=== PATIENT | male | born 1990 | race Caucasian/White ===

== ENCOUNTER 2017-10-10 14:54 | Emergency (ER) | payer OTHER ==
[2017-10-10 15:10] VITALS: BP 131/79
--- NOTE | 2017-10-10 16:01 | ED Physician Documentation ---
PD HPI URI - Stated complaint Stated Complaint: FLU SYMPTOMS - Chief complaint Chief Complaint: Abd Pain - History obtained from History obtained from: Patient - History of Present Illness Timing - onset: Last night Timing details: Abrupt onset, Still present Associated symptoms: Fever, Chills, NVD. 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 No: Sick contact, Immunocompromised, Unimmunized Similar symptoms before: Has not had sx before Recently seen: Not recently seen Review of Systems Constitutional: reports: Fever, Chills, Myalgias Nose: denies: Rhinorrhea / runny nose, Congestion Throat: denies: Sore throat Respiratory: denies: Cough GI: reports: Nausea, Vomiting, Diarrhea. denies: Abdominal Pain : denies: Dysuria, Frequency Skin: denies: Rash, Lesions Neurologic: reports: Generalized weakness. denies: Near syncope Endocrine: denies: Weight loss Immunocompromised: denies: Immunocompromised PD PAST MEDICAL HISTORY - Past Medical History Cardiovascular: None Endocrine/Autoimmune: None GI: None - Past Surgical History Past Surgical History: Yes General: Other - Present Medications Home Medications: Ambulatory Orders Medication Instructions Recorded Confirmed Diphenoxylate HCl/Atropine 1 each PO Q6H PRN #12 tablet 10/10/17 [Diphenoxylate-Atrop 2.5-0.025] Naproxen 375 mg PO BID #15 tablet 10/10/17 Ondansetron Odt [Zofran] 4 mg TL Q6H PRN #15 tablet 10/10/17 - Allergies Allergies/Adverse Reactions: Allergies Allergy/AdvReac Type Severity Reaction Status Date / Time No Known Drug Allergies Allergy Verified 07/04/16 18:56 - Social History Does the pt smoke?: No Smoking Status: Never smoker Does the pt drink ETOH?: Yes Does the pt have substance abuse?: No - Immunizations Immunizations are current?: Yes PD ED PE NORMAL - Vitals Vital signs reviewed: Yes - General General: Alert and oriented X 3, Well developed/nourished - HEENT HEENT: Ears normal, Pharynx benign. No: Moist mucous membranes - Neck Neck: Supple, no meningeal sign, No adenopathy - Cardiac Cardiac: RRR, No murmur - Respiratory Respiratory: Clear bilaterally - Abdomen Abdomen: Normal bowel sounds, Soft, Non tender, Non distended - Male Male : Deferred - Rectal Rectal: Deferred - Back Back: No CVA TTP - Derm Derm: Warm and dry. No: Normal color (somewhat pale) - Extremities Extremities: No deformity, No tenderness to palpate, Normal ROM s pain, No edema , No calf tenderness / cord - Neuro Neuro: Alert and oriented X 3, No motor deficit, Normal speech Results - Vitals Vitals: Oxygen O2 Source Room air - Labs Labs: Laboratory Tests 10/10/17 15:15 Influenza A (Rapid) Negative Influenza B (Rapid) Negative Influenza Types A,B Ag - PD MEDICAL DECISION MAKING - ED course Complexity details: re-evaluated patient (feeling much better with some IV fluids and meds. Taking PO fluids here now. tachycardia improved but feeling much better. ), considered differential, d/w patient Departure - Departure Disposition: 01 Home, Self Care Clinical Impression: Nausea vomiting and diarrhea Condition: Stable Record reviewed to determine appropriate education?: Yes Instructions: ED Food Poison Or Gastroenteritis Follow-Up: [facility] [Provider Group] Prescriptions: Diphenoxylate HCl/Atropine [Diphenoxylate-Atrop 2.5-0.025] 1 each PO Q6H PRN # 12 tablet PRN Reason: Diarrhea Naproxen 375 mg PO BID #15 tablet Ondansetron Odt [Zofran] 4 mg TL Q6H PRN #15 tablet PRN Reason: Nausea / Vomiting Comments: Frequent fluids. May consider resting home tonight. Ondansetron if needed for nausea. Lomotil if needed for diarrhea. Tylenol or naproxen if needed for pains and achiness. Likely will have some persistent symptoms for another day. Recheck if vomiting despite medications or any focal abdominal pain, high fevers but, bloody stool, other concerns. Follow-up with your primary in 1-2 days if not fully better. Forms: Activity restrictions Discharge Date/Time: 10/10/17 17:31
[2017-10-10] MEDS ORDERED: SODIUM CHLORIDE 0.9% 1,000 ML IV ONE ×2 (16:22)
[2017-10-10] MEDS ORDERED: ONDANSETRON 4 MG/2 ML VIAL IVP STA (16:22)
[2017-10-10] MEDS ORDERED: KETOROLAC 60 MG/2 ML VIAL IVP STA (16:22)
[2017-10-10] MEDS ORDERED: DIPHENOX/ATROPINE 2.5/0.025 MG TABLET PO STA (16:22)
[2017-10-10] MEDS ORDERED: DIPHENOX/ATROPINE 2.5/0.025 MG TABLET PO ONE (16:45)
[2017-10-10] MEDS ORDERED: ONDANSETRON 4 MG/2 ML VIAL ONE (16:45)
[2017-10-10] MEDS ORDERED: KETOROLAC 30 MG/ML VIAL ONE (16:46)
== END 2017-10-10 17:31 | disposition home or self-care (01) ==
LOC: ED 14:54
DX: R11.2 Nausea with vomiting, unspecified (principal); R19.7 Diarrhea, unspecified
CPT/HCPCS: 87275; 87276; 96374; 96375; 99283; A9270

== ENCOUNTER 2018-03-23 17:02 | Emergency (ER) | payer OTHER ==
[2018-03-23 17:35] VITALS: BP 175/100
--- NOTE | 2018-03-23 17:47 | ED Physician Documentation ---
PD HPI GI BLEED - Stated complaint Stated Complaint: MALE - Chief complaint Chief Complaint: General - History obtained from History obtained from: Patient - History of Present Illness Timing - onset: How many days ago (4) Timing - details: Still present Associated symptoms: BRBPR, Other (rectal pain) Similar symptoms before: Has not had sx before - Treatment prior to arrival Treatment prior to arrival: Preparation H. - Additional information Additional information: The patient is a 27-year-old male who complains of rectal pain that he has had intermittently for the past 4 days. It started after he had a particularly large bowel movement, and it occurs after each bowel movement during the past 4 days. He describes it as a burning pain. He is also noticed bright red blood on the outside of his stools. He denies history of similar symptoms in the past. His risk factors for hemorrhoids include weight lifting. On further review of systems, he denies abdominal pain, nausea, vomiting, or fever. Review of Systems Constitutional: denies: Fever Nose: denies: Congestion Respiratory: denies: Cough GI: reports: Bloody / black stool (Bright red blood streaks on the outside of his stool.). denies: Abdominal Pain, Nausea, Vomiting : denies: Dysuria Skin: denies: Rash Musculoskeletal: denies: Back pain PD PAST MEDICAL HISTORY - Past Medical History Cardiovascular: None Endocrine/Autoimmune: None GI: None - Past Surgical History Past Surgical History: Yes General: Other - Present Medications Home Medications: Ambulatory Orders Medication Instructions Recorded Confirmed Hydrocortisone Acetate [Anucort-Hc] 25 mg RC BID PRN #14 supp.rect 03/23/18 - Allergies Allergies/Adverse Reactions: Allergies Allergy/AdvReac Type Severity Reaction Status Date / Time No Known Drug Allergies Allergy Verified 03/23/18 17:35 - Social History Does the pt smoke?: No Smoking Status: Never smoker Does the pt drink ETOH?: Yes Does the pt have substance abuse?: No - Immunizations Immunizations are current?: Yes PD ED PE NORMAL - Vitals Vital signs reviewed: Yes - General General: Alert and oriented X 3, Well developed/nourished, Other (Standing at the bedside, not wanting to sit down.) - HEENT HEENT: Atraumatic - Respiratory Respiratory: No respiratory distress - Rectal Rectal: Other (Rectal examination reveals swollen external hemorrhoids. There is no bleeding currently. There is associated tenderness to palpation.) - Derm Derm: No rash - Extremities Extremities: No edema - Neuro Neuro: Alert and oriented X 3, No motor deficit, Normal speech Results - Vitals Vitals: Vital Signs - 24 hr 03/23/18 17:30 Temperature 36.5 C Heart Rate 71 Respiratory 16 Rate Blood Pressure 175/100 H O2 Saturation 100 Oxygen O2 Source Room air PD MEDICAL DECISION MAKING - ED course Complexity details: considered differential, d/w patient ED course: The patient's presentation is most consistent with external hemorrhoids. There is no clinical evidence of perianal abscess. He is being discharged with prescription for Anusol HC. I discussed with him diagnosis, symptomatic treatment and outpatient follow-up, as well as potentially worrisome signs or symptoms that should prompt reevaluation in the emergency department. Departure - Departure Disposition: 01 Home, Self Care Clinical Impression: External hemorrhoids Condition: Stable Instructions: ANUSOL-HC Suppositories, ED Hemorrhoids [facility] Prescriptions: Hydrocortisone Acetate [Anucort-Hc] 25 mg RC BID PRN #14 supp.rect PRN Reason: Rectal Discomfort Comments: Clean the anal area with warm soapy water at least twice daily. You can use Anusol HC twice daily as prescribed if needed for anal discomfort. Continue using stool softeners. Follow up with your primary physician within 2 weeks. Call to schedule appointment. Return to the emergency department if you develop increasing pain, increasing bleeding from your rectum, or otherwise worsening symptoms.
== END 2018-03-23 17:47 | disposition home or self-care (01) ==
LOC: ED 17:02
DX: K64.4 Residual hemorrhoidal skin tags (principal)
CPT/HCPCS: 99283